=== PATIENT | female | born 1950 | race Caucasian/White ===

== ENCOUNTER 2019-03-19 09:24 | Outpatient (CLI) | payer MEDICARE ==
--- NOTE | 2019-03-19 11:39 | CT ---
POSTCONTRAST SOFT TISSUE NECK CT: HISTORY: Left-sided neck mass. COMPARISON: None. FINDINGS: Visualized brain parenchyma and orbits are unremarkable. Adequate aeration of the visualized mastoid air cells. Minimal left maxillary sinus mucosal disease w ith a mucous retention cyst. Limited evaluation the oral cavity due to dental amalgam artifact. Midline fatty raphae of the tongue is preserved. Aerodigestive tract is patent. No mucosal abnormality. Epiglottis has a normal caliber. Preepiglottic fat is preserved. There is no prevertebral soft tissue swelling. Symmetric attenuation of the parotid and submandibular glands. Symmetric attenuation of the sternocleidomastoid muscles. The great vessels of the neck are grossly patent. Cervical spine vertebral body height is maintained. No fracture. Varying degrees of central canal stenosis and foraminal narrowing on the basis of degenerative change. No evidence of lymphadenopathy by size criteria. Upper mediastinum and lung apices are unremarkable. Slightly cephalad to the palpable marker in the left neck there is a 1.6 x 0.4 cm lymph node with a p reserved fatty hilum. No evidence of suspicious mass, abscess at the level of the palpable marker. IMPRESSION: No suspicious masses or lymphadenopathy at the level of the left neck palpable marker. Transcribed Date/Time: 03/19/2019 12:55 PM
== END 2019-03-19 09:25 | disposition home or self-care (01) ==
LOC: BICCT 09:24
PROVIDERS: ATTEND Otolaryngology Plastic Surgery within the Head & Neck
DX: R22.0 Localized swelling, mass and lump, head (principal)
CPT/HCPCS: 70491; 82565

== ENCOUNTER 2019-05-21 11:48 | Outpatient (CLI) | payer MEDICARE ==
--- NOTE | 2019-05-21 13:33 | MRI ---
Lumbar spine MRI without contrast: 05/21/2019 COMPARISON: None HISTORY: Lumbar radiculopathy, low back pain with radiation into the right hip and right leg. TECHNIQUE: Multiplanar multisequence MR imaging of the lumbar spine obtained without contrast FINDINGS: The sagittal STIR imaging demonstrates no focal area of osseous marrow edema. On the basis of 5 lumbar type vertebral bodies, conus medullaris terminates at T12-L1. T12-L1: There is disc space narrowing and disc desiccation. Mild bilateral facet hypertrophy is noted . There is no significant central canal or neural foraminal stenosis L1-2: There is disc space narrowing, disc desiccation, and mild disc bulge. There is anterior osteoph yte formation. No significant central canal or neural foraminal stenosis L2-3: There is disc space narrowing, disc desiccation, and disc bulge. There is a prominent anterior epidural mass filling the right lateral recess posterior to the L3 vertebral body with severe right lateral recess stenosis. This appears to represent an extruded disc fragment extending inferiorly fro m the L2-3 level measuring 1.4 cm in craniocaudal dimension and 1.1 cm in AP dimension. There is also bilateral facet hypertrophy at the L2-3 level with no significant neural foraminal stenosis. L3-4: Mild bilateral facet hypertrophy. There is disc space narrowing, disc desiccation, and mild dis c bulge. There is no significant central canal or neural foraminal stenosis L4-5: There is disc space narrowing and disc desiccation with mild disc bulge. No significant central canal stenosis. Bilateral facet hypertrophy noted with mild/moderate left neural foraminal stenosis L5-S1: There is disc space narrowing and disc desiccation with degenerative endplate change and mild disc bulge causing no significant central canal stenosis. There is bilateral facet hypertrophy with moderate left and mild right neural foraminal stenosis. The imaged retroperitoneal structures demonstrate no acute findings. IMPRESSION: Multilevel degenerative change within the lumbar spine as detailed above. The most signif icant finding is a prominent right paracentral anterior epidural mass posterior to the L3 vertebral body with severe right lateral recess stenosis. This suggests an extruded disc fragment with inferior migration, emanating from the L2-3 level.
== END 2019-05-21 11:49 | disposition home or self-care (01) ==
LOC: BICMRI 11:48
PROVIDERS: ATTEND Family Medicine
DX: M47.26 Other spondylosis with radiculopathy, lumbar region (principal); M48.061 Spinal stenosis, lumbar region without neurogenic claudication; G95.9 Disease of spinal cord, unspecified
CPT/HCPCS: 72148

== ENCOUNTER 2019-09-13 13:14 | Outpatient (CLI) | payer MEDICARE ==
--- NOTE | 2019-09-13 14:05 | RAD ---
XR Lumbar Spine 2 Or 3 View INDICATION: Preoperative; low back pain FINDINGS: Bones: There is slight retrolisthesis of L2 on L3 and L1 on L2. There is vacuum disc phenomenon at L5 -S1. No acute fracture or subluxation demonstrated. Joints: There is advanced disc degenerative disease at L1-L2, L2-3 and L5-S1. There is prominent face t osteoarthrosis at L3-4 through L5-S1. There is slight leftward curvature of the lumbar spine at T12-L1. Soft tissues: No radiopaque foreign body is evident. IMPRESSION: Moderate to severe lumbar spondylosis.
== END 2019-09-13 13:15 | disposition home or self-care (01) ==
LOC: TBSIIMAG 13:14
PROVIDERS: ATTEND Surgery
DX: M54.5 Low back pain (principal); M47.816 Spondylosis without myelopathy or radiculopathy, lumbar region
CPT/HCPCS: 72100

== ENCOUNTER 2019-11-23 07:21 | Day surgery (SDC) | payer MEDICARE ==
[2019-11-18 10:55] VITALS: BMI 25.8
[2019-11-23] MEDS ORDERED: Levofloxacin 500 mg/D5W 100 ml Premix Bag ONE (08:10)
[2019-11-23] MEDS ORDERED: Clindamycin/D5W 900 mg/50 ml Premix Bag ONE (08:10)
[2019-11-23] MEDS ORDERED: Thrombin 5000 UNITS/5 ML VIAL ONE ×2 (11:01→12:59)
[2019-11-23] MEDS ORDERED: Fentanyl 100 MCG/2 ML VIAL ONE ×2 (11:06→15:02)
[2019-11-23] MEDS ORDERED: HYDROmorphone 0.5 MG/0.5 ML SYRINGE ONE (11:06)
[2019-11-23] MEDS ORDERED: Bacitracin Zinc Ointment 30 gm TUBE ONE (12:59)
[2019-11-23] MEDS ORDERED: tiZANidine HCl 4 MG TAB PO PRN (13:05)
[2019-11-23] MEDS ORDERED: Ondansetron PF 4 MG/2 ML Vial IVP PRN ×2 (13:05→15:22)
[2019-11-23] MEDS ORDERED: HYDROcodone/Acetaminophen 7.5/325 mg Tablet PO PRN (13:05)
[2019-11-23] MEDS ORDERED: Acetaminophen 325 MG TAB PO PRN (13:05)
[2019-11-23] MEDS ORDERED: Milk Of Magnesia 30 ML UDCUP PO PRN (13:05)
[2019-11-23] MEDS ORDERED: Morphine 2 MG/ML SYRINGE SLOW IVP PRN ×2 (13:05→18:58)
[2019-11-23] MEDS ORDERED: Fleet Enema 133 ML BOT PR PRN (13:05)
[2019-11-23] MEDS ORDERED: Bisacodyl 10 MG SUPP PR PRN (13:05)
[2019-11-23] MEDS ORDERED: Mag-Al 1200 mg/1200 mg/30 ML UDCUP PO PRN (13:05)
[2019-11-23] MEDS ORDERED: traMADol HCl 50 MG TAB PO PRN ×3 (13:05→18:58)
[2019-11-23] MEDS ORDERED: Glycopyrrolate 0.2 MG/ML 5 ML SYRINGE ONE (13:08)
[2019-11-23] MEDS ORDERED: Lidocaine 1% PF 5 ML VIAL ONE (13:08)
[2019-11-23] MEDS ORDERED: Ondansetron PF 4 MG/2 ML Vial ONE (13:08)
[2019-11-23] MEDS ORDERED: PROPOFOL 200 MG/20 ML VIAL ONE (13:08)
[2019-11-23] MEDS ORDERED: EPHEDRINE 25 MG/5 ML SYRINGE ONE ×3 (13:08→13:20)
[2019-11-23] MEDS ORDERED: Rocuronium Bromide 10 MG/ML (10ML VIAL) ONE (13:08)
[2019-11-23] MEDS ORDERED: Loperamide HCl 2 MG CAP PO PRN (14:31)
--- NOTE | 2019-11-23 15:11 | OP ---
DATE OF PROCEDURE: 11/23/2019 LOCATION: OR 11. CONTRACT ASSOCIATE: Randy Shepard PA-C PREPROCEDURE DIAGNOSIS: Multilevel lumbar stenosis with low back and leg pain with lumbar disk extrusion. POSTPROCEDURE DIAGNOSIS: Multilevel lumbar stenosis with low back and leg pain with lumbar disk extrusion. PROCEDURES PERFORMED: 1. L2-L3, L3-L4, L4-L5 laminectomies, partial facetectomies, and foraminotomies. 2. Right L2-L3 diskectomy. 3. Use of operative microscope for microdissection. DESCRIPTION OF PROCEDURE: After informed consent was obtained from the patient, the patient was brought to the OR. Proper patient, pause, and identification were carried out. She was placed under excellent general endotracheal anesthesia and positioned prone on the OR table. All appropriate points were padded. We identified the L2 through L5 dorsal spines. Linear eric was made over this area. This region was sterilely cleansed, prepared, and draped. Proper patient, pause, and identification were carried out. The wound was then opened with a combination of sharp, monopolar, and blunt dissection. The L2, L3, L4, L5 dorsal spines and lamina were exposed. Localization film confirmed our area of interest. We then performed L2 through L5 laminectomy, partial facetectomy, and foraminotomies. We then brought the microscope in for microdissection, performed an L2-L3 diskectomy with removal of multiple disk fragments. Copious irrigation occurred throughout as did maximizing hemostasis. The wound was then closed in anatomic layers. There was a small blood in the dura, but no spinal fluid leak, and I opted to place DuraSeal over this area to reinforce it. The wound was copiously irrigated and closed in anatomic layers following meticulous hemostasis. The patient then emerged from anesthesia. Job ID: [id number]
[2019-11-23] MEDS ORDERED: diphenhydrAMINE 50 MG/ML VIAL IVP PRN (15:22)
[2019-11-23] MEDS ORDERED: Zolpidem Tartrate 5 MG TAB PO PRN (15:22)
[2019-11-23] MEDS ORDERED: Promethazine HCl 25 MG/ML VIAL IM PRN ×2 (15:22→16:15)
[2019-11-23] MEDS ORDERED: diphenhydrAMINE 25 MG CAP PO PRN (15:22)
[2019-11-23] MEDS ORDERED: fentaNYL Citrate/PF 2,000 MCG in Sodium Chloride 0.9% 60 ML IV PRN (15:22)
[2019-11-23] MEDS ORDERED: Naloxone HCl 0.4 mg/ml Vial IV PRN (15:22)
[2019-11-23] MEDS ORDERED: diphenhydrAMINE 50 MG/ML VIAL IM PRN (15:22)
[2019-11-23] MEDS ORDERED: Communication Order-Pharmacy FS SCH (15:30)
[2019-11-23] MEDS ORDERED: Promethazine HCl 25 MG/ML VIAL SLOW IVP PRN (16:15)
[2019-11-23] MEDS ORDERED: diphenhydrAMINE 50 MG/ML VIAL ONE (16:51)
[2019-11-23] MEDS: Gabapentin 100 MG CAP PO SCH ×2 (17:45→21:34)
[2019-11-23] MEDS: Sodium Chloride 0.9% 1,000 ML IV SCH (17:45)
[2019-11-23] MEDS: Clindamycin/D5W 900 MG in Premix Bag 1 BAG IVPB SCH ×2 (17:45→23:28)
[2019-11-23] MEDS ORDERED: Dexamethasone 4 mg/ml Vial SLOW IVP SCH (20:30)
[2019-11-23] MEDS ORDERED: diphenhydrAMINE 50 MG/ML VIAL IVP SCH (20:30)
[2019-11-23] MEDS ORDERED: Simvastatin 5 MG TAB PO SCH (21:00)
[2019-11-23] MEDS: DorzolamidE/Timolol 2%/0.5% Ophth Soln 10 ml Bottle EA EYE SCH (21:43)
[2019-11-23] MEDS: cycloSPORINE 0.05% Ophthalmic Droperette EA EYE SCH (21:43)
[2019-11-24] MEDS: Sodium Chloride 0.9% 1,000 ML IV SCH (03:15)
[2019-11-24] MEDS ORDERED: Levothyroxine Sodium 75 MCG TAB PO SCH (06:00)
[2019-11-24] MEDS ORDERED: metFORMIN 500 MG TAB PO SCH (08:00)
[2019-11-24] MEDS: Gabapentin 100 MG CAP PO SCH (08:33)
[2019-11-24] MEDS: DorzolamidE/Timolol 2%/0.5% Ophth Soln 10 ml Bottle EA EYE SCH (08:33)
[2019-11-24] MEDS: cycloSPORINE 0.05% Ophthalmic Droperette EA EYE SCH (08:34)
[2019-11-24] MEDS ORDERED: Cyanocobalamin (Vitamin B-12) 1,000 MCG TAB PO SCH (09:00)
[2019-11-24] MEDS ORDERED: Hydrochlorothiazide 25 MG TAB PO SCH (09:00)
[2019-11-24] MEDS ORDERED: Lisinopril 10 MG TAB PO SCH (09:00)
[2019-11-24] MEDS ORDERED: MOXIFLOXACIN L EYE SCH (09:00)
[2019-11-24] MEDS ORDERED: Vitamin E 400 UNITS CAP PO SCH (09:00)
[2019-11-24] MEDS ORDERED: [UNRECOGNIZED DRUG - OTHER] L EYE SCH (09:00)
[2019-11-24] MEDS ORDERED: Lactinex Tablet PO SCH (09:00)
[2019-11-24] MEDS ORDERED: Escitalopram Oxalate 20 mg Tablet PO SCH (09:00)
[2019-11-24] MEDS ORDERED: PREDNISOLONE L EYE SCH (09:00)
--- NOTE | 2019-11-24 09:32 | PRG ---
DATE OF SERVICE: 11/24/2019 Ms. Issa is doing well postoperative day 1 from multilevel lumbar laminectomy and diskectomy. She has met criteria for dismissal. We will discharge her. Job ID: [id number]
[2019-11-24 11:14] VITALS: BP 117/72; TEMP 99
== END 2019-11-24 13:41 | disposition home or self-care (01) ==
LOC: SDC 07:21 → SURG A 13:05 → SDC 11-24 13:41
PROVIDERS: ATTEND Surgery
PROC: 0ST20ZZ Resection of Lumbar Vertebral Disc, Open Approach (ICD-10-PCS; principal; 2019-11-23)
PROC: 01NB0ZZ Release Lumbar Nerve, Open Approach (ICD-10-PCS; 2019-11-23)
DX: M48.062 Spinal stenosis, lumbar region with neurogenic claudication (principal); M51.16 Intervertebral disc disorders with radiculopathy, lumbar region; Z79.84 Long term (current) use of oral hypoglycemic drugs; Z79.899 Other long term (current) drug therapy; Z88.0 Allergy status to penicillin; Z88.1 Allergy status to other antibiotic agents; Z88.2 Allergy status to sulfonamides; Z88.5 Allergy status to narcotic agent; Z91.048 Other nonmedicinal substance allergy status
CPT/HCPCS: 36416; 76000; J1100; J1170; J1200; J1956; J2001; J2270; J2405; J2704; J3010; J3370; J3490

== ENCOUNTER 2019-11-26 06:05 | Observation (INO) | payer MEDICARE ==
[2019-11-26 07:04] LABS: #Eosinphils 0.3 thou/uL (0.0-0.7); #Lymphocytes 0.9 thou/uL (1.20-3.40); #Monocytes 0.8 thou/uL (0.11-0.59); #Neutrophils 6.8 thou/uL (1.40-6.50); %Basophils 0.5 % (0.0-1.0); %Eosinophils 3.5 % (0.0-10.0); %Lymphocytes 10.1 % (21.0-51.0); %Monocytes 8.7 % (0.0-10.0); %Neutrophils 77.3 % (42.0-75.0); Hemoglobin 9.3 g/dL (12.0-16.0); Mean Corpuscular HGB CONC 33.7 g/dL (32.0-36.0); Mean Corpuscular Hemoglobin 32.7 pg (27.0-31.0); Mean Corpuscular Volume 97.3 fL (78.0-98.0); Mean Platelet Volume 7.7 fL (7.4-10.4); Platelet Count 156 thou/uL (130-400); RBC Distribution Width 11.9 % (11.5-14.5); Red Blood Cell (RBC) Count 2.83 mill/uL (4.20-5.40); White Blood Cell (WBC) Count 8.8 thou/uL (4.8-10.8)
[2019-11-26 07:15] LABS: ALT (SGPT) 10 U/L (8-55); AST (SGOT) 15 U/L (5-34); Albumin 3.1 g/dL (3.4-4.8); Alkaline Phosphatase 54 U/L (40-110); Anion Gap 11 mmol/L (10-20); BUN (Urea Nitrogen) 9 mg/dL (9.8-20.1); Bilirubin, Total 0.6 mg/dL (0.2-1.2); Calc. Creatinine Clearance 0 mL/min (70-130); Calcium 7.3 mg/dL (7.8-10.44); Carbon Dioxide 28 mmol/L (23-31); Chloride 104 mmol/L (98-107); Estimated GFR-MDRD 82; Globulin 1.9 g/dL (2.4-3.5); Glucose 149 mg/dL (80-115); Lipase Less than 4 U/L (8-78); Potassium 4.1 mmol/L (3.5-5.1); Sodium 139 mmol/L (136-145)
--- NOTE | 2019-11-26 09:00 | CT ---
CT PULMONARY ANGIOGRAM WITH IV CONTRATS AND 3D POSTPROCESSING: HISTORY: Chest pain. Difficulty breathing. FINDINGS: There is good contrast opacification of the pulmonary arterial vasculature without filling defects to suggest pulmonary embolism. There are vascular calcifications without evidence of aneurysmal dilata tion of the thoracic aorta. No pleural or pericardial effusions are seen. There are atelectatic caio nges in the posterior lung [place]. No pneumothorax or lung masses are identified. There are degener ative changes in the spine. IMPRESSION: No CT evidence of pulmonary embolism. POS: ERIC
--- NOTE | 2019-11-26 09:07 | RAD ---
SINGLE VIEW OF THE CHEST: COMPARISON: None. HISTORY: Chest pain. FINDINGS: Single view of the chest shows a normal sized cardiomediastinal silhouette. There is no evidence of c onsolidation, mass, or pleural effusion. The bones are unremarkable. IMPRESSION: No evidence of acute cardiopulmonary disease. POS: C
--- NOTE | 2019-11-26 10:06 | CT ---
CT Lumbar Spine WO Con INDICATION: Recent back surgery on November 23, 2019; history of hypotension and anemia COMPARISON: MR of the lumbar spine dated May 21, 2019 FINDINGS: Fracture: There is a mildly displaced fracture involving the L2 spinous process which is likely postp rocedural in nature. Spinal alignment: There is stable posterior retrolisthesis of L2 on L3. Lumbar spine degenerative change: The moderate multilevel spondylosis of the lumbar spine is similar appearing. There is been interval performance of laminectomies at L3 and L4. There is partial laminectomies at L2. There is fluid and gas material overlying the posterior epidural space of cherry ctomy defect site possibly related to postsurgical packing. Small amount of gas is seen along the right lateral and anterior epidural space at the L2-3 intervertebral level. This is in a region of th e previously seen large right L2-3 paracentral extra-axial mass. Visualized retroperitoneum and paraspinal soft tissues: Demonstrate contrast within the renal collect ing systems. This is likely from prior IV contrast administration. There are mild vascular calcifications seen involving the visualized vasculature. IMPRESSION: Interval postsurgical change consistent with laminectomies at L3 and L4. There is a partial laminecto my at L2 with some fracturing of the L2 spinous process which is likely postprocedural in nature. There is gas at the laminectomy defect site and along the epidural space of the L2-3 intervertebral l evel. This was previously seen in the region of the suspected extruded disc fragment on the right at L2-3.
[2019-11-26] MEDS ORDERED: Nitroglycerin 0.4 MG TAB (25 Tab Bottle) PO PRN (10:35)
[2019-11-26 11:25] LABS: Troponin I 0.014 ng/mL (< 0.028)
[2019-11-26] MEDS ORDERED: Iopamidol-370 76% 500 ML 1 ML ONE (11:55)
--- NOTE | 2019-11-26 13:32 | HP ---
PRIMARY CARE PROVIDER: Yuliana Agarwal MD CHIEF COMPLAINT: Chest pain. HISTORY OF PRESENT ILLNESS: Ms. Issa is a pleasant 68-year-old lady, who was seen at [facility] on November 26, 2019. She was hospitalized at this facility from November 23 to of this year for a lumbar spinal surgery. She reports doing well after the surgery. Around 2 a.m., she started having chest discomfort. She reports that it was dull, retrosternal, initially stabbing, nonradiating, accompanied by shortness of breath, but not by diaphoresis, 6/10 at its worst, not accompanied by nausea or vomiting. She reports that she had myocardial infarction in the past, but the pain was not similar to today's pain. She cannot recall any aggravating or relieving factors for the pain. REVIEW OF SYSTEMS: All systems were reviewed and found to be negative except for pertinent positives mentioned above. PAST MEDICAL HISTORY: Basal cell carcinoma, squamous cell carcinoma, myocardial infarction, diabetes mellitus type 2, hypothyroidism, dyslipidemia, hypertension, and TIA. PAST SURGICAL HISTORY: Bladder suspension, bladder biopsy, carpal tunnel repair x2, hysterectomy, thyroidectomy, tonsillectomy, laminectomy. PAST PSYCHIATRIC HISTORY: Anxiety. SOCIAL HISTORY: No history of tobacco use, alcohol use, or recreational drug use. FAMILY HISTORY: Heart disease in her father. ALLERGIES: AMOXICILLIN, CIPROFLOXACIN, CODEINE, METRONIDAZOLE, AND SULFA. CURRENT MEDICATIONS: 1. Metformin 500 mg daily. 2. Vitamin E 400 units daily. 3. Restasis eyedrops to both eyes two times a day. 4. Prednisolone eyedrops. 5. Naproxen p.r.n. 6. Myrbetriq 25 mg daily. 7. Metoprolol succinate 25 mg daily. 8. Loperamide p.r.n. 9. Lisinopril 10 mg daily. 10. Levothyroxine 75 mcg daily. 11. Hydrochlorothiazide 25 mg daily. 12. Probiotic one capsule daily. 13. Gabapentin 100 mg 3 times a day. 14. Lexapro 20 mg daily. 15. Dorzolamide eye drops. 16. Vitamin B12/folic acid one tablet daily. 17. Vitamin D3 1000 units daily. 18. Aspirin 81 mg daily. 19. Tylenol 325 mg daily. PHYSICAL EXAMINATION: GENERAL: On examination, Ms. Issa is awake and alert, not in acute distress. VITAL SIGNS: Blood pressure is 110/52, pulse 106, respiratory rate 17, and oxygen saturation 93% on room air. She is afebrile. EYES: No scleral icterus. No conjunctival pallor. ENT: Moist mucosal membranes. No oropharyngeal erythema or exudates. NECK: Supple, nontender. Trachea is midline. RESPIRATORY: Accessory muscles of breathing are not active. Chest wall movements are symmetric bilaterally. Lungs are clear to auscultation without wheeze, rhonchi, or crepitations. CARDIOVASCULAR: S1 and S2 are heard, tachycardic and regular. Peripheral pulses are palpable. ABDOMEN: Soft, nontender. Bowel sounds are heard. NEUROLOGIC: Cranial nerves 2 through 12 are intact. MUSCULOSKELETAL: The patient is moving all 4 extremities. SKIN: No rashes. LYMPHATIC: No cervical lymphadenopathy. PSYCHIATRIC: Normal mood, normal affect. The patient is oriented to person, place, and time. LABORATORY DATA: Ms. Issa' labs and investigations were reviewed. I reviewed her electrocardiogram, which shows normal sinus rhythm and no ST changes to suggest an acute coronary syndrome. I also reviewed her chest x-ray, which does not show any pulmonary infiltrates. She had CT angiogram of the chest, which did not show any evidence of pulmonary embolism. She also had CT scan of the lumbar spine, which showed interval postsurgical change consistent with laminectomies at L3 and L4, partial laminectomy at L2 with some fracturing of L2 spinous process, which is likely postprocedural in nature. She had gas at the laminectomy defect site and along the epidural space of the L2-L3 intervertebral level. This was previously seen in the region of the suspected extruded disk fragment on the right at L2-L3. She has normal white count, normocytic anemia with hemoglobin 9.3, normal platelet count, normal electrolytes, normal creatinine, decreased albumin of 3.1, otherwise unremarkable liver profile and normal troponin I x2. Lactic acid level is normal. ASSESSMENT AND PLAN: Ms. Issa is a pleasant 68-year-old lady, who was seen at [facility] on November 26, 2019. Her problem list includes: 1. Chest pain: Ms. Issa is presenting with chest pain of unknown etiology. Given her significant cardiac risk factors, she will be admitted to the hospital for telemetry monitoring and stress test. Pulmonary embolism has been ruled out. 2. Diabetes mellitus type 2: Start Accu-Cheks and insulin sliding scale. 3. Hypothyroidism: Continue Synthroid. 4. Hypertension: Resume home medications, monitor vital signs, and titrate antihypertensives as needed. Many thanks for allowing me to participate in your patient's care. Please feel free to contact me with any questions or concerns. LEVEL OF RISK: High. LEVEL OF COMPLEXITY: High. Job ID: [id number]
[2019-11-26] MEDS ORDERED: Acetaminophen 325 MG TAB ONE (14:01)
[2019-11-26 14:18] LABS: Troponin I 0.024 ng/mL (< 0.028)
[2019-11-26 15:27] LABS: Bacteria/HPF None Seen HPF (None Seen); Bilirubin Negative (Negative); Blood, Urine Trace (Negative); Clarity Clear (Clear); Glucose, Urine (Dipstick) Normal (Negative); Leukocyte Negative Leu/uL (Negative); Nitrite Negative (Negative); Protein, Urine (Dipstick) 50 mg/dL (Neg-Trace); RBC/HPF 0-3 HPF (0-3); Squamous Epithelial 0-3 HPF (0-3); Urobilinogen Normal mg/dL (Less than 2)
--- NOTE | 2019-11-26 16:54 | CON ---
DATE OF CONSULTATION: This is Randy Shepard PA-C dictating a report for Julius Ernst MD. A 30-minute initial patient evaluation of which greater than 50% of the exam was spent in counseling and coordinating the patient's care. Remainder of the exam was spent review of appropriate medical records and formulation of treatment plan on Agueda Issa. CHIEF COMPLAINT: Midline chest pain. HISTORY OF PRESENT ILLNESS: Ms. Issa is a pleasant 68-year-old female, who is well known to our group as she underwent L2-L5 laminectomies with right L2-L3 diskectomy on November 23, 2019. The patient apparently since 2 a.m. has had midline crushing mediastinal chest pain. In 1997, she did have an GA, but does not have a history of any stenting. She does see Dr. Bautista with Cardiology and is also said to have 49% stenosis of the bilateral carotid arteries. She has never had a carotid endarterectomy. Cardiac workup in the emergency room was negative in regard to EKG and troponin, although she did have some elevated BNP. Her CTA was negative for dissection or pulmonary embolism. She did have a fairly significant drop in her hemoglobin from 14.4 to 9.3, but this is not unexpected given that the patient had multilevel lumbar surgery. She has held her 81 mg aspirin. Her presenting blood pressure was 89/51 and has slowly been improving after fluid administration. She is afebrile. In regard to her low back and leg pain, the patient is doing very well. She has some soreness at the incision site and into the bilateral paralumbar musculature, but has no radicular symptoms. No sharp shooting pains into the legs and overall she feels as though this is improving. She even had some itching irritation of the bilateral shins after wearing SCDs and these were removed, and the patient states this is also improved as she has very sensitive skin. The patient's does note that she is moving rather over the past few days, but this is not to be unexpected given recent surgery. The patient denies any type of neurologic deficit, any type of wound drainage, and any type of falls. Overall, again, she is very pleased with her outcome postoperatively in regard to her lumbar spine and her presenting symptom again was chest pain. No imaging of the lumbar spine is required at this time and has not been done. PHYSICAL EXAMINATION: GENERAL: The patient is awake, alert, and appropriate. She was resting comfortably with supplemental oxygen via nasal cannula in place. NEUROLOGIC: She has excellent strength in all the extremities, especially into the bilateral lower extremities in all myotomes. She has intact sensation to light touch throughout all the extremities. SKIN: Her incision is covered with clean dry gauze and tape that was actually in place from her discharge on 11/24/2019, and there is a spot area of drainage to the very bottom of the incision. There is no active drainage and the incision is healing very well. I am not concerned about this scant drainage as it appears to be extremely minimal. IMPRESSION DIAGNOSES: 1. Status post L2-L5 laminectomies with right L2-L3 diskectomy on 11/23/2019. 2. Chest pain, history of myocardial infarction in 1997, on 81 mg aspirin. PLAN: At this time, there is no role for neurosurgical intervention as the patient is doing very well and is stable in regard to her previous surgery. She is safe to resume 81 mg aspirin at the time that our medical colleagues as early as today. She likely will be admitted to the hospital service for further pain control and for possible stress test, but again we will leave this to our medical colleagues. Again, from a neurosurgical standpoint, the patient is stable and doing well. Please call with any changes in the patient's neurologic status, otherwise we will sign off. Job ID: [id number]
[2019-11-26 18:30] VITALS: BMI 27.9
--- NOTE | 2019-11-27 02:54 | PDOC.EVN ---
Event Note - Event Note Event Note: Patient reported some flu symptoms. Flu screen checked and is positive for influenza B. Patient isolated and Tamiflu initiated.
[2019-11-27 04:53] LABS: #Eosinphils 0.2 thou/uL (0.0-0.7); #Monocytes 1.3 thou/uL (0.11-0.59); #Neutrophils 7.1 thou/uL (1.40-6.50); %Basophils 0.4 % (0.0-1.0); %Eosinophils 1.6 % (0.0-10.0); %Lymphocytes 10.7 % (21.0-51.0); %Monocytes 13.1 % (0.0-10.0); %Neutrophils 74.2 % (42.0-75.0); Hemoglobin 9.6 g/dL (12.0-16.0); Mean Corpuscular Hemoglobin 32.3 pg (27.0-31.0); Platelet Count 170 thou/uL (130-400); RBC Distribution Width 12.1 % (11.5-14.5); Red Blood Cell (RBC) Count 2.97 mill/uL (4.20-5.40); White Blood Cell (WBC) Count 9.6 thou/uL (4.8-10.8)
[2019-11-27 05:07] LABS: Anion Gap 14 mmol/L (10-20); BUN (Urea Nitrogen) 7 mg/dL (9.8-20.1); Calc. Creatinine Clearance 116 mL/min (70-130); Calcium 7.9 mg/dL (7.8-10.44); Carbon Dioxide 22 mmol/L (23-31); Chloride 104 mmol/L (98-107); Estimated GFR-MDRD Greater than 90; Glucose 124 mg/dL (80-115); Potassium 3.5 mmol/L (3.5-5.1); Sodium 136 mmol/L (136-145)
[2019-11-27] MEDS ORDERED: Oseltamivir 75 MG CAP PO SCH (09:00)
[2019-11-27] MEDS ORDERED: Levothyroxine Sodium 75 MCG TAB PO SCH (09:00)
[2019-11-27] MEDS ORDERED: Lisinopril 10 MG TAB PO SCH (09:00)
[2019-11-27] MEDS ORDERED: Loperamide HCl 2 MG CAP PO PRN ×2 (09:31→16:00)
[2019-11-27] MEDS ORDERED: Acetaminophen 325 MG TAB PO PRN (09:41)
--- NOTE | 2019-11-27 09:47 | PDOC.HOSPP ---
- Subjective Encounter Date: 11/27/19 Encounter Time: 09:44 Subjective: pleuritic chest pain for days, recent back surgery - Objective Vital Signs & Weight: Vital Signs (12 hours) Temp Pulse Resp BP BP Pulse Ox 11/27/19 07:22 99.9 F H 81 20 115/56 L 91 L 11/27/19 02:15 98.7 F 100 20 142/63 H 94 L 11/27/19 01:05 99.4 F 11/26/19 23:04 100.3 F H 93 16 117/56 L 95 Weight Weight 178 lb 6.4 oz I&O: 11/26/19 11/27/19 11/28/19 06:59 06:59 06:59 Intake Total 240 Output Total 550 Balance -310 Result Diagrams: 11/27/19 04:31 11/27/19 04:31 Additional Labs: Accuchecks 11/26/19 13:17 POC Glucose 137 H Hospitalist ROS - Medication Medications: Active Medications Generic Name Dose Route Start Last Admin Trade Name Josefina PRN Reason Stop Dose Admin Oseltamivir Phosphate 75 mg 11/27/19 09:00 11/27/19 09:41 Tamiflu PO 12/01/19 21:01 75 mg BID RODRIGO Administration - Exam General Appearance: awake alert Neck: no JVD Heart: RRR, no murmur Respiratory: CTAB Gastrointestinal: soft, normal bowel sounds Extremities: no edema Hosp A/P (1) Influenza B Code(s): J10.1 - FLU DUE TO OTH IDENT INFLUENZA VIRUS W OTH RESP MANIFEST Status: Acute (2) Pleuritic chest pain Code(s): R07.81 - PLEURODYNIA Status: Acute (3) HTN (hypertension) Code(s): I10 - ESSENTIAL (PRIMARY) HYPERTENSION Status: Chronic Qualifiers: Hypertension type: essential hypertension Qualified Code(s): I10 - Essential (primary) hypertension (4) DM type 2 (diabetes mellitus, type 2) Status: Chronic Qualifiers: Diabetes mellitus snf insulin use: without snf use Diabetes mellitus complication status: without complication Qualified Code(s): E11.9 - Type 2 diabetes mellitus without complications - Plan cancell sress test cont tamiflu selected home meds D-dimer
--- NOTE | 2019-11-27 12:08 | PRG ---
DATE OF SERVICE: 11/27/2019 Ms. Issa is a 68-year-old woman known to me as we did a lumbar decompression earlier this week. She was readmitted with following, repeated coughing and dyspnea. CTA was negative. Influenza B assessment was positive. She is neurologically intact and has no leg pain. She complains of diffuse myalgias related to influenza. I would be fine with dismissal whenever she is okay from influenza standpoint. Job ID: [id number]
--- NOTE | 2019-11-27 12:14 | EKG ---
Test Reason : Blood Pressure : / mmHG Vent. Rate : 084 BPM Atrial Rate : 084 BPM P-R Int : 130 ms QRS Dur : 076 ms QT Int : 392 ms P-R-T Axes : 058 023 048 degrees QTc Int : 463 ms Normal sinus rhythm Normal ECG Confirmed by CELSO RIVAS ([id number]), editor index YUMIKO MCKEON ([id number]) on 11/27/2019 12:14:14 PM Referred By: Confirmed By:CELSO RIVAS
[2019-11-27] MEDS ORDERED: Gabapentin 100 MG CAP PO SCH (15:00)
[2019-11-27] MEDS ORDERED: Nitroglycerin 0.4 MG TAB (25 Tab Bottle) PO PRN (15:59)
[2019-11-27] MEDS: cycloSPORINE 0.05% Ophthalmic Droperette EA EYE SCH (16:39)
[2019-11-27] MEDS: Acetaminophen 325 MG TAB PO PRN (17:09)
[2019-11-27] MEDS: DorzolamidE/Timolol 2%/0.5% Ophth Soln 10 ml Bottle EA EYE SCH (18:10)
[2019-11-27] MEDS: Oseltamivir 75 MG CAP PO SCH (20:19)
[2019-11-27] MEDS: Gabapentin 100 MG CAP PO SCH (20:20)
[2019-11-27] MEDS ORDERED: Simvastatin 20 MG TAB PO SCH ×2 (21:00)
[2019-11-27] MEDS ORDERED: cycloSPORINE 0.05% Ophthalmic Droperette EA EYE SCH (21:00)
[2019-11-27] MEDS ORDERED: diphenhydrAMINE 25 MG CAP PO PRN (21:25)
[2019-11-28] MEDS: Acetaminophen 325 MG TAB PO PRN (05:30)
[2019-11-28] MEDS ORDERED: Levothyroxine Sodium 75 MCG TAB PO SCH (06:00)
[2019-11-28 08:32] VITALS: BP 106/53; TEMP 98.6
[2019-11-28] MEDS ORDERED: Hydrochlorothiazide 25 MG TAB PO SCH ×2 (09:00)
[2019-11-28] MEDS ORDERED: [UNRECOGNIZED DRUG - OTHER] L EYE SCH (09:00)
[2019-11-28] MEDS ORDERED: Escitalopram Oxalate 20 mg Tablet PO SCH ×2 (09:00)
[2019-11-28] MEDS ORDERED: PREDNISOLONE L EYE SCH (09:00)
[2019-11-28] MEDS ORDERED: Floranex Packet PO SCH ×2 (09:00)
[2019-11-28] MEDS ORDERED: Lisinopril 10 MG TAB PO SCH (09:00)
[2019-11-28] MEDS ORDERED: MOXIFLOXACIN L EYE SCH (09:00)
[2019-11-28] MEDS: Oseltamivir 75 MG CAP PO SCH (09:32)
[2019-11-28] MEDS: Gabapentin 100 MG CAP PO SCH (09:33)
[2019-11-28] MEDS: cycloSPORINE 0.05% Ophthalmic Droperette EA EYE SCH (09:45)
[2019-11-28] MEDS: DorzolamidE/Timolol 2%/0.5% Ophth Soln 10 ml Bottle EA EYE SCH (09:45)
--- NOTE | 2019-11-28 10:06 | DIS ---
DATE OF ADMISSION: 11/26/2019 DATE OF DISCHARGE: 11/28/2019 PRIMARY CARE PROVIDER: Dr. Erica Molina. DISPOSITION: Discharged home. FINAL DIAGNOSES: Influenza B with pleuritic chest pain, diabetes mellitus type 2, hypertension, history of coronary artery disease. DISCHARGE MEDICINES: 1. Tamiflu 75 mg p.o. b.i.d. 2. Zocor 10 mg at bedtime. 3. Myrbetriq ER 25 mg a day. 4. Toprol-XL 25 mg a day. 5. Zestril 10 mg a day. 6. Levothyroxine 75 mcg a day. 7. Hydrochlorothiazide 25 mg a day. 8. Gabapentin 100 mg p.o. t.i.d. 9. Lexapro 20 mg a day. 10. Cosopt one drop each eye b.i.d. 11. Floranex 1 g p.o. daily. ALLERGIES: AMOXICILLIN, CIPROFLOXACIN, CLAVULANIC ACID, CODEINE, METRONIDAZOLE, AND SULFA. CODE STATUS: Full. DIET: Diabetic. PENDING AT TIME OF DISCHARGE: Nothing. CONSULTATION: Dr. Julius Ernst. PROCEDURES: None. HOSPITAL COURSE: The patient admitted through [facility] to the Hospitalist Service with chest pain that is pleuritic in nature. She has a history of coronary artery disease. Stated it was not similar to that. She was placed in the hospital for telemetry, probable stress test. However, her influenza A/B revealed a positive B. she did have a urine culture with 10,000-25,000 of E coli, which is considered to be colonization and not a UTI. Her CBC showed 8.8 white count with no left shift, 9.3 g of hemoglobin. It is pertinent that she is postop recent lumbar surgery. D-dimer was elevated. She had a CT of the thorax, which was negative for pulmonary emboli. Comprehensive metabolic profile is unremarkable, cardiac enzymes were normal. She was started on Tamiflu. At 2:15 in the p.m. today she is feeling remarkably better, desirous of going home. She is being discharged home on Tamiflu plus her home medicines for followup with her PCP in 3 days. Avoidance of spreading the disease was discussed with her. Job ID: [id number]
== END 2019-11-28 10:50 | disposition home or self-care (01) ==
LOC: ERS 06:05 → ERHOLD 12:24 → 2SW 17:44 → UNDODISOB 11-27 15:50
PROVIDERS: ADMIT Emergency Medicine; ATTEND Emergency Medicine
DX: R07.81 Pleurodynia (principal); J10.1 Influenza due to other identified influenza virus with other respiratory manifestations; E11.9 Type 2 diabetes mellitus without complications; I10 Essential (primary) hypertension; I25.10 Atherosclerotic heart disease of native coronary artery without angina pectoris; I25.2 Old myocardial infarction; E03.9 Hypothyroidism, unspecified; E78.5 Hyperlipidemia, unspecified; F41.9 Anxiety disorder, unspecified; I65.23 Occlusion and stenosis of bilateral carotid arteries; R79.1 Abnormal coagulation profile; Z86.73 Personal history of transient ischemic attack (TIA), and cerebral infarction without residual deficits; Z22.39 Carrier of other specified bacterial diseases; Z79.82 Long term (current) use of aspirin; Z79.84 Long term (current) use of oral hypoglycemic drugs; Z79.899 Other long term (current) drug therapy; Z88.0 Allergy status to penicillin; Z88.1 Allergy status to other antibiotic agents; Z88.2 Allergy status to sulfonamides; Z88.5 Allergy status to narcotic agent; Z88.8 Allergy status to other drugs, medicaments and biological substances; Z91.048 Other nonmedicinal substance allergy status; Z98.890 Other specified postprocedural states
CPT/HCPCS: 71045; 71275; 72131; 80048; 80053; 82962; 83605; 83690; 83880; 84484 ×2; 85025 ×2; 85379; 87040; 87077; 87086; 87186; 87804 ×2; 93005; 94760 ×2; 96360; 96361; 99285; G0378 ×4; 36415; 36416; 81003; 81015; Q9967

== ENCOUNTER 2022-10-10 10:03 | Outpatient (CLI) | payer MEDICARE | END 2022-10-10 10:04 | disposition home or self-care (01) | LOC: BICULT 10:03 | PROVIDERS: ATTEND Physician Assistant Medical | DX: R10.13 Epigastric pain (principal) | CPT/HCPCS: 76705 ==

== ENCOUNTER 2024-04-27 09:53 | Outpatient (CLI) | payer MEDICARE | END 2024-04-27 09:54 | disposition home or self-care (01) | LOC: BICCT 09:53 | PROVIDERS: ATTEND Physician Assistant Medical | DX: K21.00 Gastro-esophageal reflux disease with esophagitis, without bleeding (principal); R15.9 Full incontinence of feces; K58.9 Irritable bowel syndrome, unspecified; R10.33 Periumbilical pain; N83.8 Other noninflammatory disorders of ovary, fallopian tube and broad ligament | CPT/HCPCS: 74177; 82565 ==